=== PATIENT | male | born 1965 | race Caucasian/White ===

== ENCOUNTER 2019-11-25 11:59 | Inpatient (IN) | payer OTHER ==
[~2019-11-25] VITALS: Ht 177.8 cm; Wt 98.7 kg
[2019-11-25 12:20] VITALS: BP 172/96
[2019-11-25 12:57] LABS: ABSOLUTE BASOPHILS 0.1 thou/uL (0.0-0.2); ABSOLUTE EOSINOPHILS 0.2 thou/uL (0.0-0.7); ABSOLUTE LYMPHOCYTES 1.1 thou/uL (0.8-5.3); ABSOLUTE MONOCYTES 0.7 thou/uL (0.0-1.2); ABSOLUTE NEUTROPHILS 7.2 thou/uL (1.6-8.1); BASOPHILS 0.8 %; EOSINOPHILS 1.8 %; HEMATOCRIT 37.9 % (42.0-52.0); HEMOGLOBIN 12.7 gm/dL (14.0-18.0); LYMPHOCYTES 11.6 %; MCHC 33.6 g/dL (28.0-37.0); MCV 80.5 fL (80.0-100.0); MONOCYTES 7.5 %; MPV 7.1 fl. (7.2-11.1); NUCLEATED RBCS 0 /100WBC; PLATELET COUNT* 368 thou/uL (150-400); POLYS 78.3 %; RBC 4.71 mil/uL (4.50-6.00); RDW-CV 15.1 % (10.5-14.5); WBC 9.1 thou/uL (4.0-11.0)
[2019-11-25 13:08] LABS: CALCIUM 8.7 mg/dL (8.5-10.1); CREATININE 1.4 mg/dL (0.6-1.3); POTASSIUM 4.1 mmol/L (3.5-5.1)
[2019-11-25 13:13] LABS: ALBUMIN 2.3 g/dL (3.4-5.0); TOTAL BILIRUBIN 0.8 mg/dL (<0.1-1.0); TOTAL PROTEIN 7.7 g/dL (6.4-8.2)
[2019-11-25 14:01] LABS: ESR (SEDRATE) 100 mm/hr (0-20)
[2019-11-25 16:18] VITALS: BP 159/92
[2019-11-25 17:00] VITALS: BP 163/102
[2019-11-25 17:34] LABS: BF RBC 1241 /mm3; TOTAL CELL COUNT 16430 /mm3
[2019-11-25 17:37] LABS: CLARITY HAZY; TOTAL VOLUME 17 ml
[2019-11-25] MEDS ORDERED: OMEPRAZOLE 20 M20 M1 PO (17:52)
[2019-11-25 17:55] LABS: BF LYMPHOCYTES 3 %; BF POLYS 97 %
--- NOTE | 2019-11-25 18:18 | NUR ---
PATIENT ADMITTED TO ROOM 108 FROM ER. ALERT AND ORIENTED X 4. NO COMPLAINTS OF PAIN. RIGHT KNEE WRAPPED WITH EUGENIA, D/I. IVF TO INFUSE. ACCUCHECK. HOME MEDS UPDATED. PATIENT TO BE NPO AFTER MIDNIGHT PER ORTHO. ORIENTED TO CALL LIGHT. CALL LIGHT WITHIN REACH, WILL CONTINUE TO MONITOR.
[2019-11-25 20:00] VITALS: BP 149/84
--- NOTE | 2019-11-26 05:33 | NUR ---
ASSUMED PT CARE AT 1930. PT ALERT AND ORIENTED X4, POLITE AND COOPERATIVE WITH CARES. PT DENIED PAIN AT INITIAL ASSESSMENT. PT LATER COMPLAINED OF PAIN, IV FENTANYL GIVEN WITH PARTIAL RELIEF. PT C/O OF ITCHING WITHOUT RASH AND INCREASED PAIN. NEW ORDERS RECEIVED FOR INCREASED FENTANYL DOSE AND ONE TIME ORDER FOR BENEDRYL. NS INFUSING TO LEFT FOREARM WITHOUT DIFFICULTY. PT NPO AFTER MIDNIGHT. PT SLEPT WELL REMAINDER OF NIGHT. CALL LIGHT IN REACH. HOURLY ROUNDING IN PROGRESS, WILL CONTINUE TO MONITOR.
[2019-11-26 05:49] LABS: ABSOLUTE BASOPHILS 0.1 thou/uL (0.0-0.2); ABSOLUTE EOSINOPHILS 0.3 thou/uL (0.0-0.7); ABSOLUTE LYMPHOCYTES 1.3 thou/uL (0.8-5.3); ABSOLUTE MONOCYTES 0.6 thou/uL (0.0-1.2); ABSOLUTE NEUTROPHILS 5.5 thou/uL (1.6-8.1); BASOPHILS 0.8 %; EOSINOPHILS 3.2 %; HEMATOCRIT 34.7 % (42.0-52.0); HEMOGLOBIN 11.5 gm/dL (14.0-18.0); LYMPHOCYTES 16.6 %; MCH 26.8 pg (26.0-34.0); MCHC 33.1 g/dL (28.0-37.0); MCV 80.9 fL (80.0-100.0); MONOCYTES 8.3 %; MPV 7.5 fl. (7.2-11.1); NUCLEATED RBCS 0 /100WBC; PLATELET COUNT* 312 thou/uL (150-400); POLYS 71.1 %; RBC 4.28 mil/uL (4.50-6.00); RDW-CV 14.8 % (10.5-14.5); WBC 7.7 thou/uL (4.0-11.0)
[2019-11-26 06:08] LABS: CALCIUM 7.9 mg/dL (8.5-10.1); CREATININE 1.1 mg/dL (0.6-1.3); POTASSIUM 3.8 mmol/L (3.5-5.1)
[2019-11-26 08:25] VITALS: BP 158/87
[2019-11-26 08:44] LABS: BF RBC <1000 /mm3; TOTAL CELL COUNT 15159 /mm3
[2019-11-26 08:53] LABS: TOTAL VOLUME 60 ml
[2019-11-26 08:54] LABS: CLARITY SLIGHTLY HAZY
[2019-11-26 09:20] LABS: BF EOSINOPHILS 1 %; BF LYMPHOCYTES 15 %; BF MONOCYTES 20 %; BF POLYS 64 %
[2019-11-26 09:21] LABS: SOURCE RIGHT KNEE FLUID
--- NOTE | 2019-11-26 17:09 | NUR ---
PATIENT RESTING IN BED. PATIENT HAD ASPIRATION OF RIGHT KNEE THIS AM. PATIENT HAS DENIED NEED FOR PAIN MEDICATION. PATIENT IS UP STANDBY ASSIT TO BATHROOM. PATIENT HAD SHOWER THIS EVENING, WOUND SITE WRAPPED TO KEEP DRY. PATIENT HAS EXCELLENT APPETITE. PATIENT DENIES ANY NEEDS AT THIS TIME. CALL LIGHT WITHIN REACH.
--- NOTE | 2019-11-26 17:15 | CON ---
[address] [address] CONSULTATION Name: JONAH SAMSON Room: [address] IN M.R.#: [id number] Admission: 11/25/19 Attend Phys: Cristian Peng MD Discharge: Date of : 67 Report #: [id number] THIS REPORT FOR: //name// cc: JAVI Rincon family physician/PCP JAVI Rincon family physician/PCP ~ THIS REPORT FOR: //name// CC: Cristian CALDWELL physician/PCP DATE OF SERVICE: 11/26/2019 INFECTIOUS DISEASE CONSULTATION ATTENDING PHYSICIAN: Cristian Peng MD REASON FOR EVALUATION: Suspected right knee septic arthritis. HISTORY OF PRESENT ILLNESS: Chart reviewed, patient examined. This is a 54-year-old with known history of Crohn's disease. He has been on long-term immunosuppressive therapy with Remicade, who awoke to note swelling associated with his right knee and there was no antecedent injury, subsequently developed a significant pain. This was accompanied by unable to bear weight. He has typical episodes of bursitis, which he states often last 24-48 hours and resolved on own due to lack of resolution. He pursued some medical care. Denied systemic illness, no fevers or chills. Appetite has generally been somewhat diminished. No nausea, emesis. Has had some loose stool. As per the evaluation, uric acid was found to be normal at 6.2. X-ray confirmed a moderate sized right knee effusion and underwent aspiration on 2 separate occasions, which showed PMN predominance cell count with greater than 15,000 white cells, less than 1000 red cells on the second one. Initial one showed 16,430 cells. Protein, glucose and crystals are pending. ALLERGIES: AZATHIOPRINE AND AMIODARONE WHICH CAUSES PANCREATITIS. CURRENT MEDICATIONS: Include indomethacin, ketorolac, pantoprazole, fentanyl, enoxaparin, p.r.n. analgesics and antiemetics. PAST MEDICAL HISTORY: As described above, Crohn's disease, diabetes mellitus type 2, osteoporosis, history of arthritis, bilateral hip replacements. SOCIAL HISTORY: Former smoker. No illicit drug use. Occasional ethanol. FAMILY HISTORY: [place] [address] CONSULTATION Name: JONAH SAMSON Loretta Room: [address]#: [id number] Admission: 11/25/19 Attend Phys: Cristian Peng MD Discharge: Date of : 67 Report #: [id number] REVIEW OF SYSTEMS: Otherwise, unremarkable. PHYSICAL EXAMINATION: GENERAL: Alert, cooperative, appropriate, is in mild to moderate distress. He appears to be reasonably well nourished. VITAL SIGNS: Temperature 97.6, pulse 88, respirations 16, blood pressure 158/87. SKIN: Warm, dry, no rashes. HEENT: Normocephalic. Extraocular muscles intact. NECK: Supple. LUNGS: Generally clear to auscultation bilaterally. HEART: Regular. I do not appreciate murmur. ABDOMEN: Soft, nontender, nondistended. EXTREMITIES: Right knee has a compressive dressing that was maintained. Distal lower extremity has mild degree of edema. GENITOURINARY AND RECTAL: Deferred. LABORATORY DATA: Right knee fluid aspirate on the second analysis showed 15,159 white cells, 64% polys, 20% monocytes, 15% lymphs and 1% eos, less than thousand RBCs, described as straw, slightly hazy. Electrolytes: Sodium 135, potassium 3.8, chloride 101, bicarbonate is 25, anion gap of 9, BUN and creatinine 11 and 1.1, glucose of 116. Estimated GFR of 70. CBC: White count of 7.7, H and H 11.5 and 34.7, platelets of 312. Differential unremarkable. Venous Doppler of lower extremity showed no evidence of deep venous thrombosis. Sed rate was elevated to 100. Uric acid 6.2. CRP of 162.1. LFTs unremarkable. Albumin of 2.3. Total protein is 7.7. D-dimer elevated at 4.0. ASSESSMENT AND PLAN: Inflammatory process involving the right knee. It seems to be spontaneous. He does have some degree of immunosuppression. At this point, we do not have clear evidence of infection, I think we will check some blood cultures given the lack of starting antibiotics. Subsequent to that we will go ahead and start them. We will await cultures of the aspirate from the knee. Continue compression, elevation. Discussed with the patient in detail. <ELECTRONICALLY SIGNED> By: Bon Madera MD 11/26/19 [id number] Madera MD /nt
[2019-11-26 20:00] VITALS: BP 159/90
[2019-11-27 04:13] LABS: ABSOLUTE BASOPHILS 0.1 thou/uL (0.0-0.2); ABSOLUTE EOSINOPHILS 0.3 thou/uL (0.0-0.7); ABSOLUTE LYMPHOCYTES 1.2 thou/uL (0.8-5.3); ABSOLUTE MONOCYTES 0.7 thou/uL (0.0-1.2); ABSOLUTE NEUTROPHILS 5.8 thou/uL (1.6-8.1); BASOPHILS 0.8 %; EOSINOPHILS 3.5 %; HEMATOCRIT 33.9 % (42.0-52.0); HEMOGLOBIN 11.1 gm/dL (14.0-18.0); LYMPHOCYTES 15.2 %; MCH 26.7 pg (26.0-34.0); MCHC 32.8 g/dL (28.0-37.0); MCV 81.5 fL (80.0-100.0); MONOCYTES 8.2 %; MPV 7.6 fl. (7.2-11.1); NUCLEATED RBCS 0 /100WBC; PLATELET COUNT* 305 thou/uL (150-400); POLYS 72.3 %; RBC 4.16 mil/uL (4.50-6.00); RDW-CV 14.8 % (10.5-14.5)
[2019-11-27 04:41] LABS: ALBUMIN 1.9 g/dL (3.4-5.0); CREATININE 1.7 mg/dL (0.6-1.3); POTASSIUM 4.3 mmol/L (3.5-5.1); TOTAL BILIRUBIN 0.3 mg/dL (<0.1-1.0); TOTAL PROTEIN 6.7 g/dL (6.4-8.2)
[2019-11-27 04:47] LABS: CALCIUM 7.8 mg/dL (8.5-10.1)
--- NOTE | 2019-11-27 06:05 | NUR ---
PATIENT SLEPT WELL DURING THIS SHIFT. PT WITH EUGENIA WRAP ON RT KNEE. PT REQUESTED PAIN MEDICATION X2, RECEIVED FENTANYL 50MCG IV. PT SAID THIS RELIEVES PAIN. FLUIDS INFUSING PER DR ORDER. PT VOIDS YELLOW URINE PER URINAL. PT WITH 2100 BLOOD SUGAR OF 127; NO COVERAGE NEEDED.
[2019-11-27 08:30] VITALS: BP 166/92
--- NOTE | 2019-11-27 12:00 | NUR ---
PT.UP AD PETAR IN ROOM. STEADY. STATED HE LIVES WITH HIS FATHER. HE HAS A SUPPORTIVE DAUGHTER. IS UNEMPLOYED AND WITHOUT INSURANCE AT THIS TIME. HE HAS CRUTCHES. NO HX OF HOME HEALTH. CULTURES ARE PENDING FROM KNEE ASPIRATION ON 11/25. RESULTS WILL DETERMINE OUTCOME OF IDSCHARGE PLANS. PT.UNDERSTANDS.
--- NOTE | 2019-11-27 12:06 | PATH ---
[address] [address] PATHOLOGY RPT PROCEDURE Name: JONAH SAMSON Room: [address] [facility]#: [id number] Admission: 11/25/19 Date of : 67 Discharge: Report #: [id number] Path Case #: [id number] Note [facility] Accession Number: [id number] TESTS RESULT FLAG UNITS REF RANGE LAB Clinician Provided Cytology Information No. of containers..01 Other (Miscellaneous) Source: LT KNEE FLUID DIAGNOSIS: LT KNEE FLUID NEGATIVE FOR MALIGNANT CELLS. EXTENSIVE, PARTIALLY OBSCURRING, PREDOMINANTLY ACUTE INFLAMMATION. THIS INTERPRETATION INCLUDES EVALUATION OF A CELL BLOCK. Signed out by: 02 Ulices Salazar MD, Pathologist NPI- [id number] Performed by: 01 Chaya Alfaro, Customer Service Representative Teller ([facility]) Gross description: 01 30ML, CLOUDY YELLOW, 1 TP 1 CB /LCS 11/26/2019 1808 Local FLAG LEGEND: L-Low Normal,H-High Normal,LL-Alert Low,HH-Alert High <-Panic Low,>-Panic High,A-Abnormal,AA-Critical Abnormal Performed at: [address] [place] [address] Sharad Verduzco MD, [address] [place] [address] [address] [facility], [place] [address] Ulices Salazar MD, Specimen Comment: A courtesy copy of this report has been sent to [phone] Specimen Comment: Report sent to Performed at: 01 [facility] [address] [place] [address] [address], [place], [place] [id number] MD Sharad Verduzco MD Phone: [phone]
[2019-11-27 16:08] VITALS: BP 161/86
--- NOTE | 2019-11-27 17:37 | NUR ---
PATIENT RESTING UP IN CHAIR. PATIENT IS UP AD PETAR IN ROOM. PATIENT HAS DENIED NEED FOR PAIN MEDICATION THROUGHOUT DAY. PATIENT HAS IV FLUIDS/ANTIBIOTICS INFUSING. PATIENT HAS EXCELLENT APPETITE. PATIENT DENIES ANY NEEDS AT THIS TIME. CALL LIGHT WITHIN REACH.
[2019-11-27 20:30] VITALS: BP 162/85
--- NOTE | 2019-11-28 05:42 | NUR ---
PATIENT SLEPT MOST OF THE NIGHT. IV FLUIDS AND ANTIBIOTICS WERE GIVEN ORDERED. PATIENT WAS GIVEN PAIN MEDICINE ONCE THIS SHIFT WITH GOOD RELIEF. PATIENT IS WANTING TO GO HOME TODAY. WILL CONTINUE TO MONITOR.
[2019-11-28 07:30] VITALS: BP 158/88
[2019-11-28 10:49] LABS: ABSOLUTE BASOPHILS 0.1 thou/uL (0.0-0.2); ABSOLUTE EOSINOPHILS 0.1 thou/uL (0.0-0.7); ABSOLUTE LYMPHOCYTES 1.2 thou/uL (0.8-5.3); ABSOLUTE MONOCYTES 0.5 thou/uL (0.0-1.2); ABSOLUTE NEUTROPHILS 6.5 thou/uL (1.6-8.1); BASOPHILS 0.6 %; EOSINOPHILS 0.8 %; HEMATOCRIT 34.5 % (42.0-52.0); HEMOGLOBIN 11.4 gm/dL (14.0-18.0); LYMPHOCYTES 14.5 %; MCHC 32.9 g/dL (28.0-37.0); MPV 8.3 fl. (7.2-11.1); NUCLEATED RBCS 0 /100WBC; PLATELET COUNT* 295 thou/uL (150-400); POLYS 78.1 %; RBC 4.21 mil/uL (4.50-6.00); RDW-CV 14.7 % (10.5-14.5); WBC 8.4 thou/uL (4.0-11.0)
[2019-11-28 10:54] LABS: CALCIUM 8.3 mg/dL (8.5-10.1); CREATININE 1.5 mg/dL (0.6-1.3)
[2019-11-28 11:54] LABS: ESR (SEDRATE) 110 mm/hr (0-20)
[2019-11-28 12:13] VITALS: BP 180/87
[2019-11-28 15:45] VITALS: BP 167/85
--- NOTE | 2019-11-28 17:41 | NUR ---
PATIENT HAD A VERY GOOD DAY. HE HAS DENIED PAIN THIS SHIFT UP AMBULATING FREQUENTLY TO SEE HIS DAD IN ROOM 104. HE HAS A VERY GOOD APPETITE AND IS UP AD PETAR TO THE BATHROOM. IV ANTIBIOTICS CONTINUE ORDERED. HIS KNEE HAS AN EUGENIA WRAP ON IT AND HE TAKES IT OFF AT TIMES AND THEN REAPPLIES IT. NO DISTRESS TODAY. HE IS NOT A FALL RISK HIS IV FLUIDS CONTINUE TO INFUSE AT 100ML PER HOUR VIA PUMP.
[2019-11-28 19:07] LABS: BODY FLUID PROTEIN 3.6 g/dL (())
[2019-11-28 20:00] VITALS: BP 181/96
[2019-11-29 03:58] LABS: HEMATOCRIT 34.1 % (42.0-52.0); HEMOGLOBIN 11.1 gm/dL (14.0-18.0); MCH 26.4 pg (26.0-34.0); MCHC 32.4 g/dL (28.0-37.0); MCV 81.4 fL (80.0-100.0); MPV 8.2 fl. (7.2-11.1); RBC 4.19 mil/uL (4.50-6.00); WBC 8.8 thou/uL (4.0-11.0)
[2019-11-29 04:17] LABS: CALCIUM 7.9 mg/dL (8.5-10.1); CREATININE 1.4 mg/dL (0.6-1.3); MAGNESIUM 1.7 mg/dL (1.8-2.4); POTASSIUM 4.1 mmol/L (3.5-5.1)
--- NOTE | 2019-11-29 06:34 | NUR ---
Alert and oriented x 4. He is up independently in his room. He is having pain and swelling in his rt knee but states it has improved. He had pain meds x2. He has slept well.
[2019-11-29 09:32] VITALS: BP 187/107
[2019-11-29 14:17] LABS: SOURCE KNEE JOINT
[2019-11-29 15:36] VITALS: BP 180/96
--- NOTE | 2019-11-29 16:53 | NUR ---
PATIENT HAS BEEN AMBULATING IN THE HALLWAY AL TODAY. HE GOES DOWN TO CHECKON HIS DAD IN ROOM 104 FREQUENTLY. HE DENIES ANY PAIN AND STATES THAT HE IS READY TO GO HOME. DR IBARRA WANTS HIM TO STAY A LITTLE LONGER FOR THE IV ANTIBIOTICS. HE IS ALERT AND ORIENTED. HE TOOK A SHOWER AND WASHED HIS HAIR TODAY AND HAS NO COMPLAINTS. ALL MEDICATIONS ADMINISTERED ORDERED.
[2019-11-29 20:00] VITALS: BP 189/98
[2019-11-30 04:54] LABS: HEMATOCRIT 33.7 % (42.0-52.0); MCH 26.7 pg (26.0-34.0); MCHC 32.8 g/dL (28.0-37.0); MCV 81.6 fL (80.0-100.0); MPV 7.9 fl. (7.2-11.1); RBC 4.13 mil/uL (4.50-6.00); RDW-CV 15.2 % (10.5-14.5); WBC 9.2 thou/uL (4.0-11.0)
[2019-11-30 05:02] LABS: CALCIUM 8.2 mg/dL (8.5-10.1); CREATININE 1.5 mg/dL (0.6-1.3); MAGNESIUM 1.8 mg/dL (1.8-2.4); POTASSIUM 3.8 mmol/L (3.5-5.1)
--- NOTE | 2019-11-30 07:31 | NUR ---
Alert and oriented x 4. Rt knee pain has decreased as well as the edema. He did have pain med at bedtime. Antibiotics given this shift. BP was elevated and hydralazine was given. He hasn't slept well this shift.
[2019-11-30] MEDS ORDERED: PREDNISONE 10 M10 MG PO (07:53)
[2019-11-30] MEDS ORDERED: TRAMADOL 50 MG50 MG PO (07:53)
[2019-11-30] MEDS ORDERED: METFORMIN HCL500 M3 PO (07:54)
[2019-11-30 08:10] VITALS: BP 171/90
[2019-11-30 09:44] VITALS: BP 171/90
[2019-11-30] MEDS ORDERED: AUGMENTIN 875-1 EACH PO (09:53)
--- NOTE | 2019-11-30 10:00 | NUR ---
PT.IN FATHER'S ROOM. HE IS A PT.ALSO. PT.TO BE DISCHARGED TODAY. GAVE HIM COMM. RESOURCE INFORMATION. HE SAID HE HAS A PCP. HE KNOWS ABOUT THE [facility]. HE IS LIVING WITH HIS DAD. NO NEEDS IDENTIFIED.
[2019-11-30 10:17] VITALS: BP 171/90
--- NOTE | 2019-11-30 10:41 | NUR ---
I WENT OVER ALL DISCHARGE INSTRUCTIONS WITH PATIENT AND HE VERBALIZED UNDERSTANDING OF ALL DISCHARGE INSTRUCTIONS. HE DOES NOT HAVE A PCP BUT CASE MANAGEMENT GAVE HIM A LIST OF AVAILABLE PCP'S IN THE AREA. I GAVE HIM 4 PRESCRIPTIONS AND HANDOUTS OVER ALL OF THEM. I REMOVED HIS IV WITH THE CANNULA INTACT AND HE GOT DRESSED IN HIS STREET CLOTHES. HE TOOK ALL HIS BELONGINGS AND WENT DOWN TO HIS FATHERS ROOM, NUMBER 104 TO TALK WITH PHYSICAL THERAPY ABOUT HIS DAD. HE STATED THAT HE IS GOING TO STAY HERE WITH HIS DAD FOR A WHILE TODAY THEN GO HOME. HE JUST TOOK ALL HIS BELONGINGS OUT TO HIS CAR AND THEN HE WILL BE BACK. DENIES PAIN. NO DISTRESS NOTED.
[2019-11-30 10:49] VITALS: BP 171/90
== END 2019-11-30 10:40 | disposition home or self-care (01) | DRG 549 ==
LOC: M.ERS 11:59 → M.ORTHSURG 14:47 → M.TBA-ER 14:47 → M.ORTHSURG 16:21
PROVIDERS: Internal Medicine; Orthopaedic Surgery; Physician Assistant; ADMIT Internal Medicine; ATTEND Internal Medicine
PROC: 0S9C3ZZ Drainage of Right Knee Joint, Percutaneous Approach (ICD-10-PCS; principal; 2019-11-25)
DX: M00.9 Pyogenic arthritis, unspecified (principal); K50.90 Crohn's disease, unspecified, without complications; N17.9 Acute kidney failure, unspecified; Z96.643 Presence of artificial hip joint, bilateral; M81.0 Age-related osteoporosis without current pathological fracture; M19.90 Unspecified osteoarthritis, unspecified site; E11.9 Type 2 diabetes mellitus without complications; M10.9 Gout, unspecified; M25.461 Effusion, right knee; Z88.8 Allergy status to other drugs, medicaments and biological substances; Z79.899 Other long term (current) drug therapy; Z90.49 Acquired absence of other specified parts of digestive tract; Z87.891 Personal history of nicotine dependence; Z79.4 Long term (current) use of insulin; Z03.818 Encounter for observation for suspected exposure to other biological agents ruled out

== ENCOUNTER 2019-12-10 14:38 | Emergency (ER) | payer OTHER ==
[~2019-12-10] VITALS: Ht 188 cm; Wt 95.3 kg
[~2019-12-10 14:38] MED LIST: AUGMENTIN 875-1 EACH PO; METFORMIN HCL500 M3 PO; OMEPRAZOLE 20 M20 M1 PO; PREDNISONE 10 M10 MG PO; TRAMADOL 50 MG50 MG PO
[2019-12-10 15:29] LABS: HEMATOCRIT 39.5 % (42.0-52.0); HEMOGLOBIN 13.1 gm/dL (14.0-18.0); MCH 27.5 pg (26.0-34.0); MCHC 33.2 g/dL (28.0-37.0); MPV 8.3 fl. (7.2-11.1); NUCLEATED RBCS 0 /100WBC; PLATELET COUNT* 231 thou/uL (150-400); RBC 4.76 mil/uL (4.50-6.00); RDW-CV 17.6 % (10.5-14.5); WBC 16.3 thou/uL (4.0-11.0)
[2019-12-10 15:38] LABS: CALCIUM 8.5 mg/dL (8.5-10.1); CREATININE 1.4 mg/dL (0.6-1.3); POTASSIUM 4.6 mmol/L (3.5-5.1)
[2019-12-10 15:40] LABS: URIC ACID* 6.1 mg/dL (2.6-7.2)
[2019-12-10 15:52] LABS: ABSOLUTE LYMPHOCYTES 0.3 thou/uL (0.8-5.3); ABSOLUTE MONOCYTES 0.2 thou/uL (0.0-1.2); ABSOLUTE NEUTROPHILS 15.8 thou/uL (1.6-8.1)
[2019-12-10 15:53] LABS: ANISOCYTOSIS 1+; PLATELET ESTIMATE ADEQUATE
[2019-12-10] MEDS ORDERED: PREDNISONE 20 M20 MG PO (16:07)
[2019-12-10] MEDS ORDERED: TRAMADOL 50 MG50 MG PO (16:07)
[2019-12-10] MEDS ORDERED: PREDNISONE 10 M10 M1 PO (16:10)
[2019-12-10 16:39] VITALS: BP 200/109
== END 2019-12-10 16:30 | disposition home or self-care (01) ==
LOC: M.ERS 14:38
PROVIDERS: Nurse Practitioner Family
DX: M25.531 Pain in right wrist (principal); M79.89 Other specified soft tissue disorders; E11.9 Type 2 diabetes mellitus without complications; K50.90 Crohn's disease, unspecified, without complications; M81.0 Age-related osteoporosis without current pathological fracture; Z96.643 Presence of artificial hip joint, bilateral

== ENCOUNTER 2020-02-13 12:04 | Emergency (ER) | payer OTHER ==
[~2020-02-13] VITALS: Ht 177.8 cm; Wt 99.8 kg
[~2020-02-13 12:04] MED LIST changes: +PREDNISONE 10 M10 M1 PO; +PREDNISONE 20 M20 MG PO
[2020-02-13] MEDS ORDERED: PRILOSEC OTC20 MG PO (12:13)
[2020-02-13 12:58] LABS: ABSOLUTE BASOPHILS 0.1 thou/uL (0.0-0.2); ABSOLUTE EOSINOPHILS 0.3 thou/uL (0.0-0.7); ABSOLUTE LYMPHOCYTES 1.2 thou/uL (0.8-5.3); ABSOLUTE MONOCYTES 0.9 thou/uL (0.0-1.2); ABSOLUTE NEUTROPHILS 7.8 thou/uL (1.6-8.1); BASOPHILS 0.6 %; EOSINOPHILS 2.5 %; HEMATOCRIT 34.1 % (42.0-52.0); HEMOGLOBIN 11.6 gm/dL (14.0-18.0); MCH 28.3 pg (26.0-34.0); MCHC 34.1 g/dL (28.0-37.0); MONOCYTES 8.5 %; MPV 6.7 fl. (7.2-11.1); NUCLEATED RBCS 0 /100WBC; PLATELET COUNT* 443 thou/uL (150-400); POLYS 76.4 %; RBC 4.11 mil/uL (4.50-6.00); RDW-CV 17.1 % (10.5-14.5); WBC 10.2 thou/uL (4.0-11.0)
[2020-02-13 13:17] LABS: CALCIUM 8.1 mg/dL (8.5-10.1); CREATININE 1.4 mg/dL (0.6-1.3); POTASSIUM 3.2 mmol/L (3.5-5.1)
[2020-02-13 13:21] LABS: ALBUMIN 2.1 g/dL (3.4-5.0); TOTAL BILIRUBIN 0.3 mg/dL (<0.1-1.0); TOTAL PROTEIN 6.8 g/dL (6.4-8.2); URIC ACID* 4.4 mg/dL (2.6-7.2)
[2020-02-13 14:03] LABS: ESR (SEDRATE) 102 mm/hr (0-20)
[2020-02-13] MEDS ORDERED: PREDNISONE 10 M10 MG PO (14:11)
[2020-02-13] MEDS ORDERED: NORCO 5-325 TA1 EAC2 PO (14:15)
[2020-02-13 14:30] VITALS: BP 156/70
== END 2020-02-13 14:31 | disposition home or self-care (01) ==
LOC: M.ERS 12:04
PROVIDERS: Physician Assistant
DX: M71.21 Synovial cyst of popliteal space [Baker], right knee (principal); M25.461 Effusion, right knee; I10 Essential (primary) hypertension; E11.9 Type 2 diabetes mellitus without complications; K21.9 Gastro-esophageal reflux disease without esophagitis; K50.90 Crohn's disease, unspecified, without complications; M81.0 Age-related osteoporosis without current pathological fracture; Z86.718 Personal history of other venous thrombosis and embolism; Z90.49 Acquired absence of other specified parts of digestive tract; Z88.8 Allergy status to other drugs, medicaments and biological substances

== ENCOUNTER 2020-03-22 07:58 | Emergency (ER) | payer OTHER ==
[~2020-03-22] VITALS: Ht 177.8 cm; Wt 95.3 kg
[~2020-03-22 07:58] MED LIST changes: +NORCO 5-325 TA1 EAC2 PO; +PRILOSEC OTC20 MG PO
[2020-03-22 08:07] VITALS: BP 123/59
[2020-03-22 08:52] LABS: HEMATOCRIT 35.2 % (42.0-52.0); HEMOGLOBIN 11.7 gm/dL (14.0-18.0); MCHC 33.4 g/dL (28.0-37.0); NUCLEATED RBCS 0 /100WBC; PLATELET COUNT* 112 thou/uL (150-400); RBC 4.35 mil/uL (4.50-6.00); RDW-CV 17.4 % (10.5-14.5)
[2020-03-22 09:01] LABS: CALCIUM 7.9 mg/dL (8.5-10.1); CREATININE 2.9 mg/dL (0.6-1.3); POTASSIUM 3.1 mmol/L (3.5-5.1)
[2020-03-22 09:05] LABS: ALBUMIN 1.5 g/dL (3.4-5.0); TOTAL BILIRUBIN 4.5 mg/dL (<0.1-1.0)
[2020-03-22 09:32] LABS: APTT 34.1 Seconds (25.0-31.3); INR 1.1; PHOSPHORUS* 3.4 mg/dL (2.5-4.9); PROTIME 11.2 Seconds (9.20-11.50)
[2020-03-22 10:34] LABS: ABSOLUTE LYMPHOCYTES 1.3 thou/uL (0.8-5.3); ABSOLUTE MONOCYTES 0.6 thou/uL (0.0-1.2); ABSOLUTE NEUTROPHILS 14.1 thou/uL (1.6-8.1); ANISOCYTOSIS 1+; PLATELET ESTIMATE ADEQUATE
[2020-03-22 11:00] LABS: ICTOTEST (BILI CONFIRMATORY) Positive (Negative); URINE BILIRUBIN 2+ (Negative); URINE BLOOD 1+ (Negative); URINE CLARITY CLEAR; URINE COLOR YELLOW; URINE GLUCOSE-RANDOM TRACE (Negative); URINE KETONES NEGATIVE (Negative); URINE LEUKOCYTES NEGATIVE (Negative); URINE NITRITE NEGATIVE (Negative); URINE PROTEIN 1+ (Negative); URINE SPECIFIC GRAVITY 1.025 (1.005-1.030)
[2020-03-22 11:07] LABS: BACTERIA None Seen /HPF (None Seen); SQUAMOUS 0-3 Few /LPF (0-3); URINE RBC 3-10 Few /HPF (0-2); URINE WBC 0-5 Rare /HPF (0-5)
[2020-03-22 11:08] LABS: CASTS None Seen /LPF (None Seen)
[2020-03-22 11:41] LABS: CRYSTALS None Seen /LPF (None Seen)
[2020-03-22 14:28] VITALS: BP 109/63
== END 2020-03-22 14:33 | disposition short-term general hospital (02) ==
LOC: M.ERS 07:58 → M.TBA-ER 11:42 → M.ERS 11:42
PROVIDERS: Personal Emergency Response Attendant
DX: N17.9 Acute kidney failure, unspecified (principal); K50.90 Crohn's disease, unspecified, without complications; Z20.828 Contact with and (suspected) exposure to other viral communicable diseases; K55.059 Acute (reversible) ischemia of intestine, part and extent unspecified; E11.9 Type 2 diabetes mellitus without complications; I10 Essential (primary) hypertension; K21.9 Gastro-esophageal reflux disease without esophagitis; Z96.649 Presence of unspecified artificial hip joint; Z88.8 Allergy status to other drugs, medicaments and biological substances